=== PATIENT | female | born 1970 | race Hispanic/Latino ===

== ENCOUNTER 2022-05-03 20:14 | Emergency (ER) | payer OTHER ==
--- OUTSIDE RECORDS SUMMARY | 2022-05-03 20:17 | XMS REPORT | Continuity of Care Document ---
:1970 Author Organization [facility] t Address [address] [place] [address] Care Team Providers Name Role Phone Dianne Marrero Attending Clinician Unavailable Dianne Marrero Admitting Clinician Unavailable Physician, No Primary or Family Admitting Clinician Unavaila ble Payers Payer Name Policy Type Policy Number Effective Date Expiration Date S ource Problems This patient has no known problems. Allergies, Adverse Reactions, Alerts Allergy Allergy Status Severity Reaction(s) Onset Inactive Treating Comm ents Source Name Type Date Date Clinician No Known DA Active U 2017- [facility] No Known DA Active U 2017-0 [facility] Medications This patient has no known medications. Procedures This patient has no known procedures. Encounters Start End Encounter Admission Attending Care Care Encounter Source Date/Time Date/Time Type Type Clinicians Facility Department ID 2022-04-25 2022-04-25 Outpatient SHERIE Quintanilla [id number] [facility] 12:00:00 12:00:00 Dianne 20 [facility] 2021-04-16 2021-04-16 Outpatient SHERIE Quintanilla [id number] [facility] 12:00:00 12:00:00 Dianne [id number] [facility] 2020-04-10 2020-04-10 Outpatient SHERIE Quintanilla LAAury [id number] [facility] 12:00:00 12:00:00 Dianne [id number] [facility] 2019-12-26 2019-12-26 Outpatient NASRA Quintanilla JANET [id number] [facility] 12:00:00 12:00:00 Dianne [facility] 2019-11-25 2019-11-25 Outpatient NASRA Quintanilla JANET [id number] [facility] 12:00:00 12:00:00 Dianne [id number] [facility] 2019-11-18 2019-11-18 Outpatient NASRA Quintanilla JANET [id number] [facility] 12:00:00 12:00:00 Dianne [id number] [facility] Results This patient has no known results.
[2022-05-03] MEDS ORDERED: HYDROCODONE/APAP 5/325 MG TAB ONE (20:47)
--- NOTE | 2022-05-03 21:33 | RAD REPORT ---
EXAM DESCRIPTION: RAD - Forearm Left - 05/03/2022 9:27 pm CLINICAL HISTORY: ANIMAL BITE COMPARISON: No comparisons FINDINGS: No fracture or radiopaque foreign body. Mild soft tissue swelling.
--- NOTE | 2022-05-03 21:34 | RAD REPORT ---
EXAM DESCRIPTION: RAD - Hand Left 3 View - 05/03/2022 9:27 pm CLINICAL HISTORY: ANIMAL BITE COMPARISON: No comparisons FINDINGS: No fracture or radiopaque foreign body.
--- NOTE | 2022-05-03 21:50 | ER ---
Nurse's Notes [facility] Name: Ladonna Carpenter Age: 51 yrs Sex: Female : 1970 Arrival Date: 05/03/2022 Time: 20:17 Bed 11 Private MD: Diagnosis: Bitten by dog Presentation: 05/03 20:19 Chief complaint: Patient states: pt reports her dog bit down on her left forearm and kl her arm hit a metal table no open wounds noted pt reoprts pain with movement. Coronavirus screen: Vaccine status: Patient reports receiving the 2nd dose of the covid vaccine. Shopear. Ebola Screen: Patient negative for fever greater than or equal to 101.5 degrees Fahrenheit, and additional compatible Ebola Virus Disease symptoms. Initial Sepsis Screen: Does the patient meet any 2 criteria? No. Patient's initial sepsis screen is negative. Does the patient have a suspected source of infection? No. Patient's initial sepsis screen is negative. Risk Assessment: Do you want to hurt yourself or someone else? Patient reports no desire to harm self or others. Onset of symptoms was May 03, 2022 at 20:00. 20:19 Method Of Arrival: Ambulatory 20:19 Acuity: VALERY 4 Triage Assessment: 20:24 Bite description: bite sustained to dorsal aspect of left forearm by a dog, animal information: vaccination(s) is current. 21:03 Bite description: [place] [employer] notified. 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 - Social history:: Smoking status: Patient denies any tobacco usage or history of. Screenin:02 Abuse screen: Denies threats or abuse. Nutritional screening: No deficits noted. Tuberculosis screening: No symptoms or risk factors identified. Fall Risk None identified. Assessment: 21:02 Pain: Complains of pain in left hand and left arm and dorsal aspect of left forearm Pain currently is 6 out of 10 on a pain scale. Derm: Skin is intact, Skin is pink, warm \T\ dry. Vital Signs: 20:19 BP 117 / 63; Pulse 81; Resp 16; Temp 97.5(TE); Pulse Ox 100% on R/A; Weight 136.08 kg; kl Height 4 ft. 11 in. (149.86 cm); Pain 6/10; 22:35 BP 132 / 70; Pulse 78; Resp 16; Pulse Ox 99% on R/A; Pain 4/10; kl 20:19 Body Mass Index 60.59 (136.08 kg, 149.86 cm) ED Course: 20:17 Patient arrived in ED. as 20:23 Triage completed. kl 20:28 William Torres MD is Attending Physician. 7 21:03 Patient has correct armband on for positive identification. kl 21:28 Hand Left 3 View XRAY In Process Unspecified. EDMS 21:28 Forearm Left XRAY In Process Unspecified. EDMS 21:49 Raul Thao MD is Referral Physician. 7 22:35 Volar splint. Administered Medications: 20:41 Drug: HYDROcodone-acetaminophen 5 mg-325 mg 1 tabs Route: PO; Outcome: 21:50 Discharge ordered by . 7 22:36 Patient left the ED. Signatures: Dispatcher [employer] Nuria Ferraro RN RN Demetrice Singletary Maurice, MD MD 7
--- NOTE | 2022-05-03 21:50 | EDPHYS ---
Physician Documentation [facility] Name: Ladonna Carpenter Age: 51 yrs Sex: Female : 1970 Arrival Date: 05/03/2022 Time: 20:17 Bed 11 Private MD: ED Physician William Torres HPI: 05/03 20:34 This 51 yrs old Female presents to ER via Ambulatory with complaints of Dog mh7 Bite, Hand Swelling. 20:34 The patient was bitten on the left hand and dorsal aspect of left forearm, by a dog, jeanie Handling dogs food, at home. Onset: The symptoms/episode began/occurred just prior to arrival, today. Animal information: The animal was reported to appear healthy. Animal's vaccinations are up to date. The animal is known and can be quarantined. Secondary to the bite the patient reports pain. Associated signs and symptoms: Pertinent positives: bony tenderness, pain at site, tenderness, Pertinent negatives: erythema at site, fever, fluctuance, loss of consciousness, motor deficit, numbness distal to wound, suspected foreign body. Severity of symptoms: At their worst the symptoms were moderate, earlier today, in the emergency department the symptoms are unchanged. 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 - Social history:: Smoking status: Patient denies any tobacco usage or history of. ROS: 20:34 Constitutional: Negative for fever, chills, and weight loss, Eyes: Negative for injury, mh7 pain, redness, and discharge, ENT: Negative for injury, pain, and discharge, Neck: Negative for injury, pain, and swelling, Cardiovascular: Negative for chest pain, palpitations, and edema, Respiratory: Negative for shortness of breath, cough, wheezing, and pleuritic chest pain, Abdomen/GI: Negative for abdominal pain, nausea, vomiting, diarrhea, and constipation, Back: Negative for injury and pain, : Negative for injury, bleeding, discharge, and swelling, Skin: Negative for injury, rash, and discoloration, Neuro: Negative for headache, weakness, numbness, tingling, and seizure, Psych: Negative for depression, anxiety, suicide ideation, homicidal ideation, and hallucinations, Allergy/Immunology: Negative for hives, rash, and allergies, Endocrine: Negative for neck swelling, polydipsia, polyuria, polyphagia, and marked weight changes, Hematologic/Lymphatic: Negative for swollen nodes, abnormal bleeding, and unusual bruising. Exam: 20:34 Head/Face: Normocephalic, atraumatic. Eyes: Pupils equal round and reactive to light, mh7 extra-ocular motions intact. Lids and lashes normal. Conjunctiva and sclera are non-icteric and not injected. Cornea within normal limits. Periorbital areas with no swelling, redness, or edema. Skin: Warm, dry with normal turgor. Normal color with no rashes, no lesions, and no evidence of cellulitis. 20:34 Neuro: Awake and alert, GCS 15, oriented to person, place, time, and situation. Cranial nerves II-XII grossly intact. Motor strength 5/5 in all extremities. Sensory grossly intact. Cerebellar exam normal. Normal gait. Psych: Awake, alert, with orientation to person, place and time. Behavior, mood, and affect are within normal limits. 20:34 Constitutional: The patient appears in no acute distress, alert, awake, uncomfortable. 20:34 Musculoskeletal/extremity: Extremities: noted in the left hand and dorsal aspect of left forearm: pain, tenderness, ROM: intact in all extremities, Circulation is intact in all extremities. Sensation intact. Compartment Syndrome exam of affected extremity: is normal. no numbness, no tingling, no sensation deficit, no palor, no weak pulses, Joints: All joints appear normal with full range of motion. Weight bearing: able to fully bear weight, without difficulty, Tendon exam: specific tendon testing normal through active and passive range of motion Vital Signs: 20:19 BP 117 / 63; Pulse 81; Resp 16; Temp 97.5(TE); Pulse Ox 100% on R/A; Weight 136.08 kg; kl Height 4 ft. 11 in. (149.86 cm); Pain 6/10; 22:35 BP 132 / 70; Pulse 78; Resp 16; Pulse Ox 99% on R/A; Pain 4/10; kl 20:19 Body Mass Index 60.59 (136.08 kg, 149.86 cm) kl MDM: 21:47 Differential diagnosis: tendon injury, cellulitis, Fracture. Rabies Status: Rabies [facility] immunization is not indicated. Data reviewed: vital signs, nurses notes, radiologic studies, plain films. Data interpreted: Pulse oximetry: on room air is 100 %. Interpretation: normal. Counseling: I had a detailed discussion with the patient and/or guardian regarding: the historical points, exam findings, and any diagnostic results supporting the discharge/admit diagnosis, radiology results, the need for outpatient follow up, to return to the emergency department if symptoms worsen or persist or if there are any questions or concerns that arise at home. Response to treatment: the patient's symptoms have markedly improved after treatment. 21:47 ED course: Feels better, well appearing, NAD, VSS, NVI, no focal neurological deficits. mh7 No obvious puncture wound, lacerations, or signs of infection. Splint to area for comfort and pain medication. Discussed x ray results and follow up. Advised to return if redness, significant swelling, altered sensation, worsening pain, or any other concerns.. 21:50 Patient medically screened. [facility] 05/03 20:33 Order name: Hand Left 3 View XRAY; Complete Time: 21:36 7 05/03 20:33 Order name: Forearm Left XRAY; Complete Time: 21:36 7 05/03 21:43 Order name: Splint - Volar Wrist Splint; Complete Time: 22:27 mh7 Administered Medications: 20:41 Drug: HYDROcodone-acetaminophen 5 mg-325 mg 1 tabs Route: PO; kl Disposition Summary: 05/03/22 21:50 Discharge Ordered Location: Home [facility] Problem: new 7 Symptoms: have improved mh Condition: Stable mh7 Diagnosis - Bitten by dog [facility] Followup: 7 - With: Private Physician - When: 1 - 2 days - Reason: Worsening of condition, Recheck today's complaints, Continuance of care, Re-evaluation by your physician Followup: [facility] - With: Raul Thao MD - When: 2 - 3 days - Reason: Worsening of condition, Recheck today's complaints Discharge Instructions: - Discharge Summary Sheet [facility] - Animal Bite, Adult, [id number] [facility] Forms: - Medication Reconciliation Form [facility] - Thank You Letter [facility] - Antibiotic Education [facility] - Prescription Opioid Use [facility] Prescriptions: - Augmentin 500-125 mg Oral Tablet - take 1 tablet by ORAL route every 8 hours for 7 days; 21 tablet; Refills: 0, [facility] Product Selection Permitted - Ibuprofen 800 mg Oral Tablet - take 1 tablet by ORAL route every 8 hours As needed take with food; 15 tablet; [facility] Refills: 0, Product Selection Permitted Signatures: Dispatcher [employer] Nuria Ferraro RN RN kl Holmes, Maurice, MD MD [facility]
[2022-05-04 00:37] VITALS: BP 117/63; TEMP 97.5; O2SAT 100
== END 2022-05-03 22:36 | disposition home or self-care (01) ==
LOC: ER 20:14
DX: M79.632 Pain in left forearm (principal); M79.642 Pain in left hand; W54.0XXA Bitten by dog, initial encounter; I10 Essential (primary) hypertension
CPT/HCPCS: 99283